=== PATIENT | male | born 1970 ===

== ENCOUNTER 2016-09-23 00:12 | Emergency (ER) | payer OTHER ==
[2016-09-23 00:19] VITALS: TEMP 99
[2016-09-23 01:10] VITALS: RESP 16; O2SAT 99
--- NOTE | 2016-09-23 01:12 | ED PDOC ---
HPI: Seizure Time Seen by Provider: 09/23/16 00:21 Chief Complaint (Nursing): Altered Mental Status Chief Complaint (Provider): Seizure/Syncopal Episode History Per: Patient History/Exam Limitations: no limitations Recent Seizure Activity Began: Hours Ago: (x1) Number Of Seizures: One Post-ictal Period: No Severity: Moderate Additional Complaint(s): Kev Barker is a 45 year old male, with a past medical history of seizures as a child, who presents to the emergency department via EMS for the evaluation of a seizure, that the patient experienced 1 hour ago. Patient's seizure was witnessed by a friend who reported him falling to the ground, no convulsions, and the patient being unconscious for 5 minutes after the episode. Patient states he does not remember the episode and denies a headache, dizziness, shortness of breath, chest pain, or any generalized weakness or numbness. Per EMS pt was postictal at home. Of note, patient has had a history of seizures as a child, but not as an adult, and is currently taking no medications. PMD: none specified Past Medical History Reviewed: Historical Data, Nursing Documentation, Vital Signs Vital Signs: Last Vital Signs Temp 99 F 09/23/16 00:15 Pulse 91 H 09/23/16 03:25 Resp 16 09/23/16 01:09 BP 117/65 09/23/16 01:09 Pulse Ox 99 09/23/16 03:25 - Medical History PMH: Seizures - Surgical History Surgical History: No Surg Hx - Family History Family History: States: Unknown Family Hx - Social History Current smoker - smoking cessation education provided: No Ex-Smoker (has not smoked in the last 12 months): No Alcohol: None Drugs: Denies - Home Medications Home Medications: Ambulatory Orders Medication Instructions Recorded No Known Home Med 09/23/16 - Allergies Allergies/Adverse Reactions: Allergies Allergy/AdvReac Type Severity Reaction Status Date / Time No Known Allergies Allergy Verified 09/23/16 00:15 Review of Systems ROS Statement: Except As Marked, All Systems Reviewed And Found Negative Cardiovascular: Negative for: Chest Pain Respiratory: Negative for: Shortness of Breath Neurological: Positive for: Seizures. Negative for: Weakness, Numbness, Headache, Dizziness Physical Exam - Reviewed Nursing Documentation Reviewed: Yes Vital Signs Reviewed: Yes - Physical Exam Appears: Positive for: Well, Non-toxic, No Acute Distress Head Exam: Positive for: ATRAUMATIC, NORMOCEPHALIC Skin: Positive for: Normal Color, Warm, Dry Eye Exam: Positive for: Normal appearance, EOMI Neck: Positive for: Normal, Painless ROM Cardiovascular/Chest: Positive for: Regular Rate, Rhythm. Negative for: Murmur Respiratory: Positive for: Normal Breath Sounds. Negative for: Respiratory Distress Gastrointestinal/Abdominal: Positive for: Normal Exam, Soft. Negative for: Tenderness Extremity: Positive for: Normal ROM. Negative for: Tenderness, Swelling Neurologic/Psych: Positive for: Alert, Oriented. Negative for: Motor/Sensory Deficits, Aphasia, Facial Droop - Laboratory Results Result Diagrams: 09/23/16 01:05 09/23/16 01:05 - ECG ECG Rhythm: Positive for: Normal QRS, Normal ST Segment, Sinus Rhythm Rate: 91 O2 Sat by Pulse Oximetry: 99 (RA) Pulse Ox Interpretation: Normal - CT Scan/US CT Head w/out Contrast Other Rad Studies (CT/US): Interpreted By Me, Read By Radiologist, Radiology Report Reviewed Medical Decision Making Medical Decision Makin:21 Initial Impression: seizure, syncopal episode Differential Diagnoses include, but are not limited to seizure versus syncope, ruling out a head injury. Initial Plan: * CT Head w/out Contrast * EKG * CBC * BMP * Alcohol Serum * Urine Dip * Reevaluation CT Head w/out Contrast Results FINDINGS: No acute cerebral cortical infarct is seen. No intracranial hemorrhage is found. If concern for cerebral aneurysm consider MRA followup, or as clinically indicated. No mass effect is found in the brain. The ventricles, sulci and basal cisterns appear unremarkable. The orbits are unremarkable. Slight disconjugate gaze The visualized paranasal demonstrate mild mucosal thickening. Petrous temporal bones demonstrate unremarkable mastoid and petrous air cells. The calvarium appears intact. IMPRESSION: No evidence for intracranial hemorrhage or mass. EKG came back with a rate of 91. Normal Sinus Rhythm, Normal QRS, Normal ST Segment. Scribe Attestation: Documented by Harlan Keita, acting as a scribe for Fabio Polo MD. Provider Scribe Attestation: All medical record entries made by the Scribe were at my direction and personally dictated by me. I have reviewed the chart and agree that the record accurately reflects my personal performance of the history, physical exam, medical decision making, and the department course for this patient. I have also personally directed, reviewed, and agree with the discharge instructions and disposition. Disposition - Clinical Impression Clinical Impression: Seizure - Patient ED Disposition Is Patient to be Admitted: No Doctor Will See Patient In The: Office Counseled Patient/Family Regarding: Studies Performed, Diagnosis, Need For Followup - Disposition Referrals: [facility] [Outside] Disposition: Routine/Home Disposition Time: 04:18 Condition: GOOD Instructions: Recurrent Seizures in Adults (ED) Print Language: KYRGYZ
[2016-09-23 01:14] LABS: BASO % 0.7 % (0.0-2.0); EOS # 0.3 K/uL (0.0-0.7); EOS % 5.5 % (0.0-4.0); HEMATOCRIT 45.2 % (35.0-51.0); LYMPH # 1.7 K/uL (1.0-4.3); LYMPH % 27.7 % (20.0-40.0); MEAN CORPUSCULAR HEMOGLOBIN 30.3 pg (27.0-31.0); MEAN CORPUSCULAR HGB CONC 33.7 g/dL (33.0-37.0); MEAN PLATELET VOLUME 10.6 fl (7.2-11.7); MONO # 0.8 K/uL (0.0-0.8); MONO % 12.9 % (0.0-10.0); NEUT # 3.3 K/uL (1.8-7.0); NEUT % 53.2 % (50.0-75.0); NRBC % 0.1 % (0.0-0.0); RED CELL DISTRIBUTION WIDTH 12.9 % (11.5-14.5); WHITE BLOOD COUNT 6.2 K/uL (4.8-10.8)
[2016-09-23 01:21] LABS: ALCOHOL SERUM < 10 mg/dl (0-10); BLOOD UREA NITROGEN 20 mg/dl (9-20); CALCIUM 8.8 mg/dL (8.4-10.2); CARBON DIOXIDE 22 mmol/L (22-30); CHLORIDE 107 mmol/L (98-107); GFR AFRICAN-AMERICAN > 60; GLUCOSE,RANDOM 123 mg/dL (75-110); SODIUM 144 mmol/l (132-148)
[2016-09-23 04:28] VITALS: BP 115/72; PULSE 75
--- NOTE | 2016-09-23 08:28 | CT ---
PROCEDURE: CT HEAD WITHOUT CONTRAST. HISTORY: seizure COMPARISON: None available. TECHNIQUE: Axial computed tomography images were obtained through the head/brain without intravenous contrast. Radiation dose: Total exam DLP = 848.49 mGy-cm. This CT exam was performed using one or more of the following dose reduction techniques: Automated exposure control, adjustment of the mA and/or kV according to patient size, and/or use of iterative reconstruction technique. FINDINGS: HEMORRHAGE: No intracranial hemorrhage. BRAIN: No mass effect or edema. No atrophy or chronic microvascular ischemic changes. VENTRICLES: Unremarkable. No hydrocephalus. CALVARIUM: Unremarkable. PARANASAL SINUSES: Unremarkable as visualized. No significant inflammatory changes. MASTOID AIR CELLS: Unremarkable as visualized. No inflammatory changes. OTHER FINDINGS: None. IMPRESSION: Normal CT of the Head. No intracranial mass, hemorrhage or evidence of acute infarct. Preliminary interpretation of this examination was reported by [facility] at 1:35 a.m. on 09/23/2016. There is concurrence of this report with the preliminary interpretation.
--- NOTE | 2016-09-23 15:02 | CARD ---
APPROVED REPORT EKG Measurement Heart [id number] <Conclusion> Normal sinus rhythm Normal ECG
== END 2016-09-23 04:30 | disposition home or self-care (01) ==
LOC: H.ER 00:12
DX: G40.909 Epilepsy, unspecified, not intractable, without status epilepticus (principal)
CPT/HCPCS: 70450; 80048; 85025; 93005; 99285; G0480